=== PATIENT | female | born 2000 | race African-American/Black ===

== ENCOUNTER 2022-07-31 23:45 | Emergency (ER) | payer OTHER ==
[2022-08-01 00:29] LABS: Bilirubin Neg (Negative); Blood, Urine Negative (Negative); Glucose, Urine (Dipstick) Normal (Negative); Ketone, Urine Negative (Negative); Leukocyte Negative (Negative); Nitrite Negative (Negative); Protein, Urine (Dipstick) Negative (Neg-Trace); Specific Gravity, Urine 1.015 (1.005-1.030); pH, Urine 6.5 (5.0-9.0)
[2022-08-01 00:30] LABS: Clarity Clear (Clear); Pregnancy Test - Urine (BHCG) Negative (Negative); Pregu Control Background? CLEAR/WHITE (CLR/WHITE); Pregu Control Bar Appear? YES (CONTROL BAR); Specific Gravity 1.015 (1.002-1.036)
== END 2022-08-01 01:29 | disposition home or self-care (01) ==
LOC: CSHERS 23:45
DX: N64.4 Mastodynia (principal)
CPT/HCPCS: 81003; 81025; 99283